=== PATIENT | male | born 2000 | race Caucasian/White ===

== ENCOUNTER 2023-12-28 15:00 | Emergency (ER) | payer SELFPAY ==
[~2023-12-28] VITALS: Ht 190.5 cm; Wt 85.9 kg
[2023-12-28 15:12] VITALS: BP 121/80; PULSE 58; RESP 16; TEMP 98.2; O2SAT 99
[2023-12-28 15:28] VITALS: BP 121/80; PULSE 58; RESP 16; TEMP 98.2; O2SAT 99
[2023-12-28] MEDS ORDERED: GANC0.15 RIGHT EYE (15:57)
[2023-12-28] MEDS ORDERED: CYC1OS RIGHT EYE (15:57)
== END 2023-12-28 16:44 | disposition home or self-care (01) ==
LOC: MED 15:00
DX: H16.201 Unspecified keratoconjunctivitis, right eye (principal); Z79.899 Other long term (current) drug therapy
CPT/HCPCS: 99283